=== PATIENT | female | born 1970 | race Caucasian/White ===

== ENCOUNTER 2016-09-10 03:30 | Emergency (ER) | payer OTHER, BC ==
[2016-09-10] MEDS ORDERED: HYDROMORPHONE HCL 1 MG/ML SYRINGE ONE (03:57)
[2016-09-10] MEDS ORDERED: ONDANSETRON 4 MG/2ML 2 ML VIAL ONE (03:57)
[2016-09-10 04:41] LABS: ABSOLUTE NEUTROPHIL COUNT 3.5 K/mm3 (1.8-7.7); BASO # 0.1 K/mm3 (0.0-0.2); EOS # 0.3 (0.0-0.5); EOS % 3.9 % (0.9-2.9); HEMATOCRIT 43.3 % (37.0-47.0); HEMOGLOBIN 14.1 gm/l (12.0-16.0); IMM NEUT% 0.1 % (0-1); LYMPH # 2.8 (1.0-4.8); LYMPH % 37.8 % (15-45); MEAN CELL VOLUME 91.5 fl (81.0-99.0); MEAN CORPUSCULAR HEMOGLOBIN 29.8 pg (27.0-31.0); MEAN CORPUSCULAR HGB CONC 32.6 g/dl (33.0-37.0); MEAN PLATELET VOLUME 9.7 fl (7.4-10.4); MONO # 0.7 (0.0-0.8); MONO % 9.1 % (4-12); NEUT % 48.1 % (43-75); PLATELET COUNT 311 K/mm3 (130-400); RED CELL DISTRIBUTION WIDTH 12.8 % (11.5-14.5)
[2016-09-10 05:11] LABS: TROPONIN I < 0.01 ng/ml (0.0-0.06)
[2016-09-10 05:16] LABS: CKMB ISOENZYME 1.4 ng/ml (0.6-6.3)
[2016-09-10 05:21] LABS: ALBUMIN 4.3 gm/dL (3.5-5.7); CALCIUM 9.2 mg/dL (8.6-10.3)
[2016-09-10 05:52] LABS: ALB/GLOB RATIO 1.3 (>1.0)
[2016-09-10 06:51] LABS: SPECIFIC GRAVITY 1.025 (1.001-1.030); URINE BILIRUBIN NEGATIVE (NEGATIVE); URINE BLOOD NEGATIVE (NEGATIVE); URINE GLUCOSE (UA) NEGATIVE (NEGATIVE); URINE LEUKOCYTE ESTERASE NEGATIVE (NEGATIVE); URINE NITRITE NEGATIVE (NEGATIVE); URINE PROTEIN NEGATIVE (NEGATIVE); URINE UROBILINOGEN NORMAL (0-1 mg/dl)
[2016-09-10 06:52] LABS: URINE APPEARANCE CLEAR; URINE COLOR YELLOW
--- NOTE | 2016-09-10 07:49 | RAD ---
09/10/2016 7:40 AM CHEST - 2 VIEWS History: Right upper quadrant pain and nausea. Comparison: 08/03/2016 Findings: Two views of the chest are obtained. The lungs are clear with out effusion or pneumothorax. The cardiomediastinal silhouette is unremarkable.. The osseous structures are intact.. IMPRESSION: No acute intrathoracic process.
--- NOTE | 2016-09-10 07:50 | US ---
ABDOMINAL-LIMITED: 09/10/2016 3:53 AM CLINICAL HISTORY: Right upper quadrant pain with nausea.. STUDY: Limited right upper quadrant ultrasound COMPARISON: none FINDINGS: Gallbladder: Wall thickness: Normal Cholelithiasis: none Pericholecystic Fluid: none Sonographic Dawn's Sign: negative Bile ducts: Common bile duct measures upwards 4 mm. Limited visualized Liver and RUQ structures: normal IMPRESSION: No sonographic findings of acute cholecystitis or cholelithiasis. Close clinical and radiographic follow-up are recommended. Preliminary report was provided by [facility] at approximately 0504 hours on 09/10/2016.
== END 2016-09-10 07:55 | disposition home or self-care (01) ==
LOC: ED 03:30
DX: R10.9 Unspecified abdominal pain (principal); I10 Essential (primary) hypertension; M06.9 Rheumatoid arthritis, unspecified
CPT/HCPCS: 83690; 85025; 82553; 80053; 81003; 84484; 71020; 76705; 96375; 99284; 96374; 93005 ×2; 99283; J1170; J2405